=== PATIENT | male | born 1955 | race Caucasian/White ===

== ENCOUNTER 2019-11-03 15:05 | Inpatient (IN) | payer OTHER ==
--- OUTSIDE RECORDS SUMMARY | 2019-11-03 15:07 | XMS REPORT ---
:1955 [facility] Address [address] [place] [address] Dr. Toscano [address] [place] [id number] Care Team Providers Name Role Phone PORTEROLEG Troncoso KELLEE Unavailable Unavailable DEVI IBARRA Unavailable Unavailable Problems This patient has no known problems. Allergies, Adverse Reactions, Alerts This patient has no known allergies or adverse reactions. Medications This patient has no known medications. 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 COMPARISON: None available FINDINGS: Evaluation of the left femoral neck and lumbar spine were performed utilizing a bone densitometer. The left femoral neck bone mineral density is 0.777gm/cm2, the T-score is -1.1, and the Z-score is -0.1. The lumbar spine total bone mineral density is 0.906gm/cm2, the T-score is -1.7, and the Z-score is -0.9. IMPRESSION: WHO classification of osteopenia for the left femoral neck. WHO classification of osteopenia for the lumbar spine. Diagnostic criteria (World Health Organization)-Normal: BMD measurement less than one standard deviation from young adult populationOsteopenia: BMD measurement between 1 and 2.4 standard deviations belowOsteoporosis: BMD measurement greater than or equal to 2.5 standard deviations belowSevere osteoporosis: Osteoporosis and one or more fragility fractures Signed: Royce Dasilva Verified Date/Time: 12/05/2018 14:58:39 Reading Location: [facility] UE EXAM 2018-09-07 Surgical Pathology Report 12:15:00 Case: [id number] Authorizing Provider: Oleg Rowe MD Collected: 09/05/2018 1334 Ordering Location: [facility] ENDOSCOPY Received: 09/06/2018 0807 SERVICES Pathologist: Neris Noonan MD Specimens: A) - Cecum, Cecal biopsies, History of Ulcerative Colitis, evaluate for dysplasia B) - Large Intestine, Colon - Right/Ascending, Ascending colon biopsies C) - Large Intestine, Colon - Transverse, Transverse colon biopsies D) - Polyp, Colon - Transverse, Transverse colon polyp x2 E) - Large Intestine, Colon - Left/Descending, Descending colon biopsies F) - Large Intestine, Colon - Sigmoid, Sigmoid colon biospies G) - Rectum, Rectal biopsies A. LARGE BOWEL, CECUM, BIOPSIES: - UNREMARKABLE CECAL MUCOSAB. COLON, ASCENDING, BIOPSIES: - CHRONIC INACTIVE COLITIS C. COLON, TRANSVERSE, POLYPECTOMY: - TUBULAR ADENOMA D. COLON, TRANSVERSE, POLYPECTOMY: - CHRONIC INACTIVE COLITIS E. COLON, LEFT, BIOPSIES: - CHRONIC INACTIVE COLITISF. LARGE BOWEL, SIGMOID, BIOPSIES: - CHRONIC INACTIVE COLITISG. RECTUM, BIOPSIES: - CHRONIC INACTIVE PROCTITIS Signing Pathologist Direct Phone Line: [phone] signed by Neris Noonan MD on 09/07/2018 at 12:15 [facility]/ew [id number] pancolitis without complication, history ulcerative colitis, evaluate for dysplasia A. Cecal biopsy. B. Ascending colon biopsy. C. Transverse colon biopsy. D. Transverse colon polyp x2. E. Left descending colon biopsy. F. Sigmoid colon biopsy. G. Rectal biopsy Specimen is received in seven containers of formalin all labeled with the patient's information.Specimen A: Labeled "cecal biopsy" consists of multiple small fragments of kenney tissue ranging from less than 0.1 to 0.2 cm, submitted entirely in A1.Specimen B: Labeled "right ascending colon biopsy" consists of two fragments of kenney tissue measuring 0.3 and 0.4 cm submitted in B1.Specimen C: Labeled "transverse colon biopsy" consists of two fragments of kenney tissue measuring 0.4 and 0.6 cm, submitted in C1.Specimen D: Labeled "transverse colon polyp x2" consists of two fragments of kenney tissue measuring 0.1 cm, submitted entirely in D1.Specimen E: Labeled "left descending colon biopsy" consists of multiple small fragments of kenney tissue ranging from less than 0.1 to 0.2 cm, submitted entirely in E1.Specimen F: Labeled "sigmoid colon biopsy" consists of three fragments of kenney tissue ranging from 0.1 to 0.3 cm, submitted entirely in F1.Specimen G: Labeled "rectal biopsy" consists of multiple fragments of kenney-white soft tissue ranging from less than 0.1 to 0.4 cm, submitted entirely in G1. CG/ew C. The transverse colon polyps are tubular adenomas. No high-grade dysplasia or carcinoma is identified.A-B and D-G. No CMV, dysplasia or malignancy is identified. URINE CULTURE 2016-10-21 12:36:00 Test Item Value Reference Range Comments CULTURE (BEAKER) (test ysdr=3344) No growth URINALYSIS W/ [id number] 15:29:00 Test Item Value Reference Range Comments COLOR (BEAKER) (test xdvs=267) Dark Yellow CLARITY (BEAKER) (test asve=703) Clear SPECIFIC GRAVITY UA (BEAKER) (test pbjj=255) 1.023 1.001-1.035 PH UA (BEAKER) (test enhp=350) 5.5 5.0-8.0 PROTEIN UA (BEAKER) (test pdcv=864) Negative Negative GLUCOSE UA (BEAKER) (test slph=793) Negative Negative KETONES UA (BEAKER) (test afug=561) Negative Negative BILIRUBIN UA (BEAKER) (test iigg=130) Negative Negative BLOOD UA (BEAKER) (test xflx=165) Negative Negative NITRITE UA (BEAKER) (test wsdg=765) Negative Negative LEUKOCYTE ESTERASE UA (BEAKER) (test xtde=426) Negative Negative UROBILINOGEN UA (BEAKER) (test yyzn=924) 0.2 mg/dL 0.2-1.0 RBC UA (BEAKER) (test mylq=327) < /HPF WBC UA (BEAKER) (test jshh=108) < /HPF MUCUS (BEAKER) (test rpyg=5212) Rare SOURCE(BEAKER) (test byid=9520)
--- OUTSIDE RECORDS SUMMARY | 2019-11-03 15:07 | XMS REPORT | Summary of Care ---
:1955 Author Organization [facility] [place] [address] Care Team Providers Name Role Phone Quintin Singh MD Primary Care Provider Zane Mena Crc Navigator Reason for Visit Reason Comments Nutrition Counseling Consult, Test & Treat (Routine) Status Reason Specialty Diagnoses / Referred By Referred To Procedures Contact Contact Authorization Not Consult, Gastroenterology Diagnoses Ulcerative pancolitis without complication (HCCode) Zee Sage, Needed Test, and Procedures MT MED NUTR THER, 1ST, INDIV, EA 15 MIN MD Jovan Alessia, RD Treat [address] [facility] [address] [place] [address] Encounter Details Date Type Department Care Team Description 10/22/2019 Office Visit [facility] Alessia Koch, Nutrition Counseling Medicine RD Gastroenterology [address] [facility] [address] [facility] [address] 8th Floor, [address] [phone] Allergies No Known Allergiesdocumented as of this encounter (statuses as of 10/22/2019) Medications Medication Sig Dispensed Refills Start Date End Date Status Multiple Take by mouth. 0 Active Vitamins-Minerals (MULTIVITAMIN PO)Indications: Elevated prostate specific antigen (PSA) ASPIRINIndications: 81 mg. 0 Active Elevated prostate specific antigen (PSA) fluticasone (FLONASE) 0 05/03/2015 Active 50 MCG/ACT nasal spray amlodipine (NORVASC) 0 05/03/2015 Active 2.5 MG tablet Probiotic Product Take by mouth. 0 Active (PROBIOTIC OR) glucosamine-chondroitin Take 3 tablets by 0 Active 500-400 MG tablet mouth. acetaminophen 325 mg Take 650 mg by 0 Active tablet mouth. aspirin EC 81 MG TBEC Take 81 mg by 0 Active mouth. fexofenadine (TAZ) Take 30 mg by 0 Active 30 MG tablet mouth. azathioprine (IMURAN) Take 1.5 Tabs by 405 Tab 1 03/14/2018 Active 50 MG mouth daily. - 90 tabletIndications: day supply Ulcerative pancolitis without complication (HCCode) tadalafil (CIALIS) 5 MG Take 1 Tab by 90 Tab 3 02/06/2019 Active tabletIndications: mouth daily. Erectile dysfunction following radical prostatectomy sildenafil citrate Take 1 Tab by 20 Tab 6 02/06/2019 Active (VIAGRA) 100 MG mouth as needed tabletIndications: for Erectile Erectile dysfunction Dysfunction. following radical prostatectomy dicyclomine (BENTYL) 20 TAKE 1 TABLET BY 360 Tab 1 06/15/2019 Active MG tablet MOUTH EVERY 6 HOURS Na Sulfate-K Sulfate-Mg [SUPREP] Take as 1 Bottle 0 08/14/2019 Active Sulf (SUPREP BOWEL PREP directed. KIT) 17.5-3.13-1.6 GM/177ML SOLNIndications: Ulcerative pancolitis without complication (HCCode) documented as of this encounter (statuses as of 10/22/2019) Active Problems Problem Noted Date History of steroid therapy 06/12/2018 Erectile dysfunction following radical prostatectomy 01/31/2018 Iron deficiency anemia 04/01/2017 Ulcerative colitis (HCCode) 03/21/2017 History of immunosuppression therapy 03/21/2017 Medication monitoring encounter 03/21/2017 Examination of participant or control in clinical research 03/21/2017 Intestinal malabsorption 03/21/2017 Urethral stricture 10/07/2016 Dysuria 09/28/2016 Skin yeast infection 09/09/2016 JADYN (stress urinary incontinence), male 09/09/2016 Family history of prostate cancer 10/07/2015 Prostate cancer (HCCode) 02/14/2014 HTN (hypertension) documented as of this encounter (statuses as of 10/22/2019) Resolved Problems Problem Noted Date Resolved Date Elevated prostate specific antigen (PSA) 02/14/2014 09/09/2016 documented as of this encounter (statuses as of 10/22/2019) Social History Tobacco Use Types Packs/Day Years Used Date Never Smoker Smokeless Tobacco: Never Used Alcohol Use Drinks/Week oz/Week Comments Yes 2-3 Standard drinks or equivalent 2.0 - 3.0 Sex Assigned at Date Recorded Male 02/05/2019 6:25 PM CDT Job Start Date Occupation Industry Not on file Not on file Not on file Travel History Travel Start Travel End No recent travel history available. documented as of this encounter Last Filed Vital Signs Not on filedocumented in this encounter Progress Notes Alessia Koch, RD - 10/22/2019 9:00 AM CST Nutrition Assessment Indication Initial Nutrition Admit Data: This is a 64 year old Male Clinical Data: Diagnosis Ulcerative pancolitis Current Weight and Height: Height is 72 Weight is -> 164 lbs. Weight is Current BMI 22.2 (normal) Weight Change: Weight change in the past 6 months: N/A Estimated Nutrient Needs: Energy(Kilocalories) ~2610-8076 calories/day Assessment: Pt reports sole GI discomfort is abdominal cramp & bloating at times. He reports decreased episodes of loose stools. He denies any current weight changes. He consumes 3 regular meals a day/1-2 snacks. A review of current intake indicated high gluten & some high FODMAP fruits. He rarely consumes veggies and has slightly lower intake of protein. Pertinent Lab Values: N/A Nutrition Related Medications and Supplements: Nutrition related meds and supplements are Vit D, Calcium, turmeric, fish oil, MVI Nutrition Intervention: Instructed Patient re: UC / anti-inflammatory nutrition; meal planning; micro/ macronutrient needs. I discussed micro/macronutrient needs and benefits of meeting needs. I gave thorough revision of mealplanning strategies, anti- inflammatory and protein-rich food sources. I discussed gluten-free and low FODMAP meal and snack alternatives. I also reviewed portion modifications while yet meeting caloricneeds. Plan: ? Meet micro & macronutrient needs ? Use meal planning guides provided ? Adequate protein intake ? Consider temporary gluten-free diet ? Monitor FODMAP intake ? Maintain food and symptom log ? Continue supplementation ? Follow-up as neededElectronically signed by Alessia Koch RD at 2019 3:23 PM CSTdocumented in this encounter Plan of Treatment Date Type Specialty Care Team Description 12/11/2019 Office Visit Gastroenterology Oleg Rowe MD [address] [facility] [address] [place] [address] [phone] 08/12/2020 Office Visit Urology Sal Arrieta MD [address] [facility] [address] [place] [address] [place] [address] [phone] Name Type Priority Associated Diagnoses Order Schedule MT MED NUTR THER, MT Charge Routine Ulcerative pancolitis Ordered: 2019 1ST, DAVID EA 15 (HCCode) MIN Health Maintenance Due Date Last Done Comments TETANUS SHOT (ADULT) 1968 HEPATITIS C SCREENING 1971 MEDICARE AWV (Initial) 02/26/2018 FALL SCREEN 2018 PNEUMOVAX >=65 (PPSV23) 2018 PREVNAR >=65 (PCV13) 2018 FLU VACCINE > 6 MONTHS 03/29/2019 08/02/2017 (Declined) COLON CANCER SCREENING: COLONOSCOPY 09/05/2028 09/05/2018, 02/24/2016, 02/26/2015 documented as of this encounter Results Not on filedocumented in this encounter Visit Diagnoses Diagnosis Ulcerative pancolitis (HCCode) - Primary Hitchcock ulcerative (chronic) colitis documented in this encounter Insurance Payer Benefit Plan / Subscriber ID Effective Dates Phone Address Type Group [employer] MEDICARE PLAN PPO xxxxxxxx 2018-Present [address] Medicare - [employer] [place] [address] (Work) documented as of this encounter
[2019-11-03] MEDS ORDERED: NA CHLORIDE 0.9% 1,000 ML ONE (15:39)
[2019-11-03] MEDS ORDERED: FENTANYL CITR 100 MCG/2 ML ONE ×2 (15:39→19:51)
[2019-11-03 16:12] LABS: Urine Bacteria <20 /HPF (NONE SEEN); Urine Culture Reflex Order NOT NEEDED
[2019-11-03 16:22] LABS: Absolute Lymphocytes (CBC) 0.3 K/uL (0.7-4.9); Basophils % 0.2 % (0-1.3); Hematocrit 42.5 % (39.6-49.0); Lymphocytes % 2.1 % (15.3-44.8); MPV 10.2 fL (7.6-11.3); RBC Red Blood Cell Count 4.25 M/uL (4.33-5.43)
[2019-11-03 16:31] LABS: Albumin 3.6 g/dL (3.4-5.0); Bilirubin Direct 0.3 mg/dL (0-0.2); Bilirubin Total 1.4 mg/dL (0.2-1.0); Potassium 4.5 mmol/L (3.5-5.1); Protein, Total 7.5 g/dL (6.4-8.2)
[2019-11-03] MEDS ORDERED: PIPER/TAZO/NS 3.375gm 3.375 GM/100 ML BAG ONE (16:55)
[2019-11-03 17:04] LABS: Blood Morphology Comment NOT SEEN (NOT SEEN); Platelet Estimate ADEQ; Urine White Blood Cell Casts OK
--- NOTE | 2019-11-03 17:34 | RAD REPORT ---
EXAM DESCRIPTION: CT - Abdomen Pelvis W Contrast - 11/03/2019 5:00 pm CLINICAL HISTORY: Abdominal pain COMPARISON: 2016 TECHNIQUE: Computed axial tomography of the abdomen pelvis was obtained. 100 cc Isovue-300 was admin istered intravenously. Oral contrast was not requested which limits evaluation of bowel. All CT scans are performed using dose optimization technique as appropriate and may include automated exposure control or mA/KV adjustment according to patient size. FINDINGS: The liver, pancreas, adrenals appear unremarkable. Small renal cysts. Small splenic cyst Diverticula stem from the colon without evidence of diverticulitis The appendix is enlarged with stranding in adjacent fat and small amount of ill-defined fluid Prostatectomy with lymph node dissection IMPRESSION: Suppurative appendicitis
--- NOTE | 2019-11-03 18:34 | EDPHYS ---
Physician Documentation [facility] Name: Lucas Alexandra Age: 64 yrs Sex: Male : 1955 Arrival Date: 11/03/2019 Time: 15:08 Bed 18 Private MD: Jeet Singh C ED Physician Tio Jo HPI: 11/02 16:08 This 64 yrs old Male presents to ER via Ambulatory with complaints of snw Abdominal Pain. 16:08 The patient presents with abdominal distention in the right lower quadrant. Onset: The snw symptoms/episode began/occurred gradually, 3 day(s) ago, and became persistent. The symptoms do not radiate. Associated signs and symptoms: Pertinent positives: nausea, low grade temp. The symptoms are described as steady. Severity of pain: At its worst the pain was moderate. The patient has not experienced similar symptoms in the past. It is unknown whether or not the patient has recently seen a physician. hx of UC, well controlled, sees Dr. Singh. Historical: - Allergies: 15:22 No Known Allergies; tw2 - Home Meds: 15:22 amlodipine 2.5 mg tab 1 tab once daily [Active]; aspirin 81 mg Oral chew 1 tab once tw2 daily [Active]; Vitamin C 1,000 mg oral tab [Active]; Glucosamine-MSM Complex 500-333-5 mg oral cap [Active]; Vitamin D3 1,000 unit oral tab [Active]; acetaminophen 325 mg Oral tab 1 tab every 4 hours [Active]; Multiple Vitamins oral tab [Active]; vitmain zinc [Active]; turmeric (bulk) 100 % miscellaneous powd [Active]; Marla 180 mg Oral tab 1 tab once daily [Active]; Citracal Oral [Active]; Fish Oil oral oral [Active]; azathioprine 50 mg Oral tab 1.5 tab once daily [Active]; Cialis oral oral [Active]; dicyclomine 20 mg Oral tab 1 tab twice a day [Active]; Benadryl 25 mg Oral cap 1 cap nightly [Active]; melatonin 10 mg Oral tab [Active]; - PMHx: 15:22 Hypertension; ulcerative colitis; tw2 - PSHx: 15:22 prostate sx; Hernia repair; retinal sx; tw2 - Immunization history:: Adult Immunizations. - Social history:: Smoking status: . ROS: 16:06 Constitutional: Negative for fever, chills, and weight loss, Eyes: Negative for injury, snw pain, redness, and discharge, ENT: Negative for injury, pain, and discharge, Neck: Negative for injury, pain, and swelling, Cardiovascular: Negative for chest pain, palpitations, and edema, Respiratory: Negative for shortness of breath, cough, wheezing, and pleuritic chest pain, Back: Negative for injury and pain, : Negative for injury, bleeding, discharge, and swelling, MS/Extremity: Negative for injury and deformity, Skin: Negative for injury, rash, and discoloration, Neuro: Negative for headache, weakness, numbness, tingling, and seizure, Psych: Negative for depression, anxiety, suicide ideation, homicidal ideation, and hallucinations. 16:06 Abdomen/GI: Positive for abdominal pain, nausea. Exam: 16:06 Constitutional: This is a well developed, well nourished patient who is awake, alert, snw and in no acute distress. Head/Face: Normocephalic, atraumatic. Eyes: Pupils equal round and reactive to light, extra-ocular motions intact. Lids and lashes normal. Conjunctiva and sclera are non-icteric and not injected. Cornea within normal limits. Periorbital areas with no swelling, redness, or edema. ENT: Nares patent. No nasal discharge, no septal abnormalities noted. Tympanic membranes are normal and external auditory canals are clear. Oropharynx with no redness, swelling, or masses, exudates, or evidence of obstruction, uvula midline. Mucous membranes moist. Neck: Trachea midline, no thyromegaly or masses palpated, and no cervical lymphadenopathy. Supple, full range of motion without nuchal rigidity, or vertebral point tenderness. No Meningismus. Chest/axilla: Normal chest wall appearance and motion. Nontender with no deformity. No lesions are appreciated. Cardiovascular: Regular rate and rhythm with a normal S1 and S2. No gallops, murmurs, or rubs. Normal PMI, no JVD. No pulse deficits. Respiratory: Lungs have equal breath sounds bilaterally, clear to auscultation and percussion. No rales, rhonchi or wheezes noted. No increased work of breathing, no retractions or nasal flaring. Back: No spinal tenderness. No costovertebral tenderness. Full range of motion. Skin: Warm, dry with normal turgor. Normal color with no rashes, no lesions, and no evidence of cellulitis. MS/ Extremity: Pulses equal, no cyanosis. Neurovascular intact. Full, normal range of motion. Neuro: Awake and alert, GCS 15, oriented to person, place, time, and situation. Cranial nerves II-XII grossly intact. Motor strength 5/5 in all extremities. Sensory grossly intact. Cerebellar exam normal. Normal gait. Psych: Awake, alert, with orientation to person, place and time. Behavior, mood, and affect are within normal limits. 16:06 Abdomen/GI: Bowel sounds: active, all quadrants, Palpation: moderate abdominal tenderness, in the right lower quadrant, Indicators: McBurney's point is tender. Vital Signs: 15:15 BP 137 / 78; Pulse 99; Resp 17; Temp 100.4(O); Pulse Ox 99% on R/A; Weight 72.57 kg tw2 (R); Height 6 ft. 0 in. (182.88 cm); Pain 7/10; 17:56 BP 129 / 72; Pulse 97; Resp 17; Temp 100.9; Pulse Ox 96% on R/A; mh5 15:15 Body Mass Index 21.70 (72.57 kg, 182.88 cm) tw2 MDM: 15:35 Patient medically screened. snw 18:27 Data reviewed: vital signs, nurses notes. Data interpreted: Pulse oximetry: on room air snw is 96 %. Interpretation: acceptable. Counseling: I had a detailed discussion with the patient and/or guardian regarding: the historical points, exam findings, and any diagnostic results supporting the discharge/admit diagnosis, lab results, radiology results, the need for further work-up and treatment in the hospital. Response to treatment: the patient's symptoms have mildly improved after treatment. Physician consultation: Kareem Peterson MD was called at 18:28, was contacted at 18:28, regarding admission, to the medical/surgical unit. 18:32 Physician consultation: George Welch MD was called at 18:32, was contacted at 18:32, snw regarding consult. 18:39 ED course: Consulted with Dr. Welch, will take to OR today. Called out OR crew. . rn 03/07 15:27 Order name: Basic Metabolic Panel; Complete Time: 16:33 snw 11/02 15:27 Order name: CBC with Diff; Complete Time: 17:09 snw 11/02 15:27 Order name: Creatinine for Radiology; Complete Time: 16:29 snw 11/02 15:27 Order name: Hepatic Function; Complete Time: 16:33 snw 11/02 15:27 Order name: Lipase; Complete Time: 16:33 snw 11/02 15:27 Order name: Urine Culture snw 11/02 15:27 Order name: IV Saline Lock; Complete Time: 16:19 snw 11/02 15:27 Order name: CT Abd/Pelvis - IV Contrast Only; Complete Time: 17:46 snw 11/02 15:27 Order name: Urine Microscopic Only; Complete Time: 16:24 snw 11/02 16:03 Order name: Urine Dipstick--Ancillary (enter results) eb 11/02 16:32 Order name: CBC Smear Scan; Complete Time: 17:09 EDMS 11/02 15:27 Order name: Labs collected and sent; Complete Time: 16:19 snw 11/02 15:27 Order name: Urine Dipstick-Ancillary (obtain specimen); Complete Time: 16:17 snw 11/02 18:35 Order name: NPO; Complete Time: 18:39 snw Administered Medications: 15:50 Drug: NS 0.9% 1000 ml Route: IV; Rate: 125 ml/hr; Site: right antecubital; vc 19:29 Follow up: IV Status: Infusion continued upon admission; IV Intake: 700ml vc 15:50 Drug: fentaNYL (PF) 25 mcg Route: IVP; Site: right antecubital; vc 17:00 Follow up: Response: No adverse reaction vc 17:46 Drug: Zosyn 3.375 grams Route: IVPB; Infused Over: 60 mins; Site: right antecubital; vc 19:00 Follow up: IV Status: Completed infusion; IV Intake: 100ml vc Disposition: 11/03 10:08 Co-signature as Attending Physician, Tio Jo MD. rn Disposition: 11/03/19 18:34 Hospitalization ordered by Jeet Singh for Inpatient Admission. Preliminary diagnosis is Acute appendicitis. - Bed requested for Operating Room. - Status is Inpatient Admission. vc - Condition is Stable. - Problem is new. - Symptoms are unchanged. Signatures: Dispatcher [employer] EDMS Jeanna Gill, TWENTY ONE DEALER-C TWENTY ONE DEALER-Csnw Tio Jo MD MD rn Wise, Tara, RN RN tw2 Eunice Leone Vanessa, RN RN vc Corrections: (The following items were deleted from the chart) 11/02 18:38 18:34 Hospitalization Ordered by A Francisco AYOUB for Inpatient Admission. Preliminary eb diagnosis is Acute appendicitis. Bed requested for Telemetry/MedSurg (Inpatient). Status is Inpatient Admission. Condition is Stable. Problem is new. Symptoms are unchanged. snw 19:27 18:38 11/03/2019 18:34 Hospitalization Ordered by A Francisco AYOUB for Inpatient Admission. vc Preliminary diagnosis is Acute appendicitis. Bed requested for Telemetry/MedSurg (Inpatient). Status is Inpatient Admission. Condition is Stable. Problem is new. Symptoms are unchanged. eb
--- NOTE | 2019-11-03 18:34 | ER ---
Nurse's Notes [facility] Name: Lucas Alexandra Age: 64 yrs Sex: Male : 1955 Arrival Date: 11/03/2019 Time: 15:08 Bed 18 Private MD: Jeet Singh C Diagnosis: Acute appendicitis Presentation: 11/02 15:15 Chief complaint: Patient states: i think really i started feeling bad in the middle of tw2 the night , just a little bit of discomfort on the right side of my stomach, but last night it really started hurting and is tender on the right side, i was up and down all night, an i have the chills off and on, little nauseousness. Coronavirus screen: The patient has NOT traveled to a country currently being monitored by the CDC within the last 14 days. Ebola Screen: Patient denies travel to an Ebola-affected area in the 21 days before illness onset. Initial Sepsis Screen: Does the patient meet any 2 criteria? HR > 90 bpm. No. Patient's initial sepsis screen is negative. Does the patient have a suspected source of infection? No. Patient's initial sepsis screen is negative. Risk Assessment: Do you want to hurt yourself or someone else? Patient reports no desire to harm self or others. 15:15 Method Of Arrival: Ambulatory tw2 15:15 Acuity: ROLY 3 tw2 15:[address] Singh is pcp and took Tylenol at 2pm today. tw2 Triage Assessment: 15:17 General: Appears in no apparent distress. slender, well groomed, Behavior is calm, tw2 cooperative, appropriate for age. Pain: Complains of pain in right upper quadrant and right lower quadrant. GI: Reports lower abdominal pain, upper abdominal pain, nausea. Historical: - Allergies: 15:22 No Known Allergies; tw2 - Home Meds: 15:22 amlodipine 2.5 mg tab 1 tab once daily [Active]; aspirin 81 mg Oral chew 1 tab once tw2 daily [Active]; Vitamin C 1,000 mg oral tab [Active]; Glucosamine-MSM Complex 500-333-5 mg oral cap [Active]; Vitamin D3 1,000 unit oral tab [Active]; acetaminophen 325 mg Oral tab 1 tab every 4 hours [Active]; Multiple Vitamins oral tab [Active]; vitmain zinc [Active]; turmeric (bulk) 100 % miscellaneous powd [Active]; Marla 180 mg Oral tab 1 tab once daily [Active]; Citracal Oral [Active]; Fish Oil oral oral [Active]; azathioprine 50 mg Oral tab 1.5 tab once daily [Active]; Cialis oral oral [Active]; dicyclomine 20 mg Oral tab 1 tab twice a day [Active]; Benadryl 25 mg Oral cap 1 cap nightly [Active]; melatonin 10 mg Oral tab [Active]; - PMHx: 15:22 Hypertension; ulcerative colitis; tw2 - PSHx: 15:22 prostate sx; Hernia repair; retinal sx; tw2 - Immunization history:: Adult Immunizations. - Social history:: Smoking status: . Screenin:40 Abuse screen: Denies threats or abuse. Nutritional screening: No deficits noted. vc Tuberculosis screening: No symptoms or risk factors identified. Fall Risk None identified. Assessment: 15:00 GI: Bowel sounds present X 4 quads. Abd is soft Abdomen is tender to palpation. vc 15:00 General: Appears in no apparent distress. uncomfortable, Behavior is calm, cooperative, vc appropriate for age. Pain: Complains of pain in right lower quadrant and right upper quadrant. Neuro: Level of Consciousness is awake, alert, obeys commands, Oriented to person, place, time, situation, Appropriate for age. Cardiovascular: Capillary refill < 3 seconds Patient's skin is warm and dry. Respiratory: Airway is patent Respiratory effort is even, unlabored, Respiratory pattern is regular, symmetrical. : No signs and/or symptoms were reported regarding the genitourinary system. EENT: No signs and/or symptoms were reported regarding the EENT system. Derm: Skin temperature is warm. 16:00 Reassessment: Patient and/or family updated on plan of care and expected duration. Pain vc level reassessed. Patient is alert, oriented x 3, equal unlabored respirations, skin warm/dry/pink. 17:00 Reassessment: Patient and/or family updated on plan of care and expected duration. Pain vc level reassessed. Patient is alert, oriented x 3, equal unlabored respirations, skin warm/dry/pink. Patient states symptoms have not improved. 18:00 Reassessment: Patient and/or family updated on plan of care and expected duration. Pain vc level reassessed. Patient is alert, oriented x 3, equal unlabored respirations, skin warm/dry/pink. Patient states feeling better. 18:51 Reassessment: Patient placed in gown. vc 19:00 Reassessment: Patient and/or family updated on plan of care and expected duration. Pain vc level reassessed. Patient is alert, oriented x 3, equal unlabored respirations, skin warm/dry/pink. Patient states feeling better. 19:26 Reassessment: Patient wheeled to surgery by OR nurseAlbertina. vc Vital Signs: 15:15 BP 137 / 78; Pulse 99; Resp 17; Temp 100.4(O); Pulse Ox 99% on R/A; Weight 72.57 kg tw2 (R); Height 6 ft. 0 in. (182.88 cm); Pain 7/10; 17:56 BP 129 / 72; Pulse 97; Resp 17; Temp 100.9; Pulse Ox 96% on R/A; mh5 15:15 Body Mass Index 21.70 (72.57 kg, 182.88 cm) tw2 ED Course: 15:08 Patient arrived in ED. ag5 15:08 Jeet Singh MD is Private Physician. ag5 15:16 Jeanna Gill FNP-C is [facility]. snw 15:16 Tio Jo MD is Attending Physician. snw 15:16 Triage completed. tw2 15:16 Arm band placed on. tw2 15:31 Brenda Espitia, RN is Primary Nurse. vc 15:35 Inserted saline lock: 20 gauge in right antecubital area, using aseptic technique. vc 15:41 Radiology exam delayed due to lab results not completed at this time. (BUN/Creatinine). mw3 16:59 CT completed. Patient moved back from CT. mw3 17:00 CT Abd/Pelvis - IV Contrast Only In Process Unspecified. EDMS 17:57 Patient has correct armband on for positive identification. Bed in low position. Call 5 light in reach. Side rails up X 1. Adult w/ patient. Pulse ox on. NIBP on. 18:33 Jeet Singh MD is Hospitalizing Provider. snw 19:25 No provider procedures requiring assistance completed. Patient admitted, IV remains in vc place. Administered Medications: 15:50 Drug: NS 0.9% 1000 ml Route: IV; Rate: 125 ml/hr; Site: right antecubital; vc 19:29 Follow up: IV Status: Infusion continued upon admission; IV Intake: 700ml vc 15:50 Drug: fentaNYL (PF) 25 mcg Route: IVP; Site: right antecubital; vc 17:00 Follow up: Response: No adverse reaction vc 17:46 Drug: Zosyn 3.375 grams Route: IVPB; Infused Over: 60 mins; Site: right antecubital; vc 19:00 Follow up: IV Status: Completed infusion; IV Intake: 100ml vc Intake: 19:00 IV: 100ml; Total: 100ml. vc 19:29 IV: 700ml; Total: 800ml. vc Outcome: 18:34 Decision to Hospitalize by Provider. snw 19:25 Admitted to OR accompanied by nurse, via wheelchair. vc 19:25 Condition: good 19:25 Instructed on the need for admit. 19:27 Patient left the ED. vc Signatures: Dispatcher [employer] EDMS Jeanna Gill, FIELD SUPPORT REPRESENTATIVE-C FIELD SUPPORT REPRESENTATIVE-Csnw Chanel Esteves, RN RN tw2 Johana Smith 5 Donna Cardoza 3 Chuy Heredia 5 Brenda Espitia RN RN vc Corrections: (The following items were deleted from the chart) 19:26 19:23 Reassessment: Patient wheeled to surgery by OR nurse, Albertina. vc vc
[2019-11-03] MEDS ORDERED: BUPIVACAINE 0.5% PF 10 ML VIAL ONE (19:16)
[2019-11-03 19:43] LABS: Urine Blood TRACE (NEG); Urine Glucose NEGATIVE (NEG); Urine Protein 1+ (NEG); Urine pH 6.5 (5.0-7.0)
[2019-11-03] MEDS ORDERED: SUCCINYLCHOLINE 20 MG/ML (10 ML) IV ONE (19:48)
[2019-11-03] MEDS ORDERED: propofoL 200 MG/20 ML VIAL IV ONE (19:51)
[2019-11-03] MEDS ORDERED: MIDAZOLAM HCL 2 MG/2 ML INJ ONE (19:51)
[2019-11-03] MEDS ORDERED: ROCURONIUM 50 MG/5 ML VIAL IV ONE (19:51)
[2019-11-03] MEDS: Ringers Lactate 1,000 ML IV ONE ×2 (19:51→20:15)
[2019-11-03] MEDS ORDERED: MORPHINE 4 MG/ML SYR IV PRN (20:25)
[2019-11-03] MEDS: D5 0.45 NS 1,000 ML IV SCH ×2 (20:25→21:46)
[2019-11-03] MEDS ORDERED: NEOSTIGMINE 1 MG/ML -5 ML ONE ×2 (20:33→20:35)
[2019-11-03] MEDS ORDERED: GLYCOPYRROLATE 0.2 MG/ML SYR ONE (20:34)
--- NOTE | 2019-11-03 20:38 | P.OP ---
Preoperative diagnosis: Acute Appendicitis Postoperative diagnosis: same Primary procedure: Lap Appy Anesthesia: General Estimated blood loss: min Specimen: Appy Findings: as above Complications: None Transferred to: Recovery Room Condition: Good
[2019-11-03] MEDS ORDERED: ONDANSETRON 4 MG/2 ML VIAL IV PRN (20:53)
--- NOTE | 2019-11-03 21:48 | OP ---
Date of Procedure: 11/03/2019 Surgeon: George Welch MD Preoperative Diagnosis: Acute appendicitis. Postoperative Diagnosis: Acute suppurative appendicitis. Procedure Performed: Laparoscopic appendectomy. Estimated Blood Loss: Minimal. Specimen: Appendix. Findings: As above. Anesthesia: General. Complications: None. Patient tolerated the procedure in stable condition, taken to Recovery in good general condition. Description Of Procedure: The patient was brought to the OR and placed in supine position. General anesthesia was begun. The patient was prepped and draped in usual sterile fashion. Marcaine 0.5% wa s infiltrated locally. A 15-blade was used to make a 1 cm supraumbilical midline incision. Subcutan eous tissue divided. The fascia was identified and divided. A #1 Vicryl stay suture was placed. Pe ritoneal cavity was entered with sharp and blunt dissection. 12 mm trocar was placed into the perito amparo cavity under direct vision. Pneumoperitoneum was established. 5 mm trocar was placed in the le ft lower quadrant suprapubic region. Laparoscopy revealed acute suppurative appendicitis. The appen david being in the pelvis next to the sigmoid colon, which was and there was questionable per foration near the proximal part of the appendix. Base of the appendix on the cecum clearly identifie d. The mesoappendix clearly identified and a lot of separation around the appendix. Endo-VERENICE staple r was used to divide both structures and the appendix retrieved through the umbilicus via an EndoCatc h bag. Right lower quadrant, pelvis thoroughly irrigated. Effluent was clear. No evidence of bleed ing or bowel injury appreciated. Subsequently, all trocars removed in direct vision. Stay sutures w ere tied to each other reapproximate the fascial defect. Subcu wounds irrigated. Bleeding controlle d with cautery. A 3-0 chromic used for subcutaneous tissue and kathe used to close the skin. Ster ile dressing applied. Patient was awakened and taken to Recovery in good general condition. /MODL Voice ID: [id number] Report ID: [id number]
--- NOTE | 2019-11-03 21:52 | PREOPCON ---
Date of Consultation: 11/03/2019 Reason For Consultation: Abdominal pain. History Of Present Illness: Patient is a 64-year-old gentleman who 2 days ago had some lower abdomin al pain, did not feel well, some nausea, but no vomiting. No diarrhea or constipation. No dysuria o r hematuria. Yesterday, discomfort became worse and he did not sleep well. He ate well yesterday bu t today he has no appetite. Pain gotten worse. It was periumbilical now in the right lower quadrant . No sore throat, runny nose, cough, headaches, or dizziness. No chest pain. No fever or chills. Review of Systems: Otherwise unremarkable. Past Medical History: Hypertension, Crohn disease. Past Surgical History: Right inguinal hernia repair and prostatectomy. Allergies: NONE. Social History: Patient denies smoking or drinking. Family History: Noncontributory. Physical Examination: Vital Signs: Stable. He is currently afebrile. General: He is awake, alert, and oriented x3. Head and neck/MARINE EXTENSION AGENT: Cranial nerves 2 through 12 are grossly within normal. No neck masses. No JVD. Throat clear. Neck supple. Chest: Clear. Heart: S1, S2. Abdomen: Soft, nondistended. Positive bowel sounds. Positive right lower quadrant tenderness with rebound. No rigidity or guarding. Extremities: Adequately perfused. Nontender. Neuro: Nonfocal. Laboratory Data: White count is 15,000. CT of the abdomen and pelvis is consistent with acute suppu rative appendicitis. Assessment: Acute appendicitis. Plan: Admit, n.p.o., IV fluid, IV antibiotic, to the OR for Lap-Appy, possible open. The patient un derstands the risks, benefits, and alternatives and agrees to procedure. /MODL Voice ID: [id number] Report ID: [id number]
[2019-11-03] MEDS: HYDROMORPHONE HCL 1 MG/ML INJ IV PRN (22:13)
[2019-11-03 23:44] VITALS: BMI 21.7
[2019-11-04] MEDS: HYDROMORPHONE HCL 1 MG/ML INJ IV PRN ×3 (03:26→10:24)
[2019-11-04] MEDS: D5 0.45 NS 1,000 ML IV SCH ×3 (05:07→20:22)
[2019-11-04 06:13] LABS: Absolute Lymphocytes (CBC) 0.4 K/uL (0.7-4.9); Basophils % 0.2 % (0-1.3); Hematocrit 37.3 % (39.6-49.0); MPV 9.6 fL (7.6-11.3); RBC Red Blood Cell Count 3.74 M/uL (4.33-5.43)
[2019-11-04 06:29] LABS: Magnesium 1.6 mg/dL (1.8-2.4); Potassium 4.6 mmol/L (3.5-5.1)
[2019-11-04] MEDS ORDERED: PIPER/TAZO/NS 3.375gm 3.375 GM/100 ML BAG IVPB ONE ×2 (09:00→10:00)
--- NOTE | 2019-11-04 13:11 | PN ---
Date of Progress Note: 11/04/2019 Subjective: Patient is awake, alert. No complaint. Objective: Vital Signs: Stable. Afebrile. T-max was 100.0 last night. Abdomen: Benign. Laboratory Data: White count is down to 11,000. Assessment: Status post laparoscopic appendectomy for suppurative appendicitis with possible perfora tion. Recommendations: Continue IV antibiotics. Encourage ambulation and incentive spirometry. Advance d iet. Patient is clinically doing well, likely home in 24 to 48 hours. /MODL Voice ID: [id number] Report ID: [id number]
[2019-11-04] MEDS: HYDROCODONE/APAP 7.5/325 MG TAB PO PRN ×3 (14:43→22:18)
[2019-11-04] MEDS ORDERED: ENOXAPARIN 40 MG/0.4 ML SQ SCH (17:00)
[2019-11-04] MEDS: PIPER/TAZO/NS 3.375gm 3.375 GM/100 ML BAG IVPB SCH ×2 (18:09→23:26)
[2019-11-04] MEDS ORDERED: MAGNESIUM SULFATE 1 gm IVPB 1 GM/100 ML BAG IV ONE (18:31)
[2019-11-04] MEDS: POTASS/SODIUM PHOSPHATE 1 PKT POWD.PACK PO SCH ×3 (18:57→20:21)
--- NOTE | 2019-11-04 19:56 | HP ---
Date of Admission: 11/04/2019 Chief Complaint: Abdominal pain. History Of Present Illness: This is a 64-year-old pleasant male patient, came into emergency room with complaints of abdominal pain. The patient started to have right-sided lower abdominal pain evening and Tuesday his pain went away and he did his normal day-to-day activity and Tuesday evening he started to have recurrence of pain which was lot more intense, associated with some chills. No nausea, vomiting, constipation, or diarrhea. Pain got worse over period of time. So yesterday, he came into emergency room. Further evaluation in the emergency room revealed acute suppurative appendicitis and the patient was taken to surgery by Dr. Welch on an urgent basis and had laparoscopic appendectomy done for this acute appendicitis. Postoperatively, the patient was admitted to the hospital. I saw him this morning. He is feeling better overall compared to yesterday. Allergies: NO KNOWN ALLERGIES. Medications: List reviewed. Review of Systems: GI: As mentioned above. Constitutional: As mentioned above. All other systems reviewed and negative. Past Medical History: Allergic rhinitis, hypothyroidism, hypertension, ulcerative colitis, diverticulosis, prostate cancer. Past Surgical History: Tonsillectomy, hernia repair and prostatectomy done August 02, 2016, and cervical spine surgery. Family History: Father had prostate cancer and Parkinson disease. Mother had SD. One brother with cirrhosis of liver. Social History: Negative for smoking. Use of alcohol occasional beer. Physical Examination: Vital Signs: Temperature 98.5, pulse 101, respiratory rate 18, blood pressure 154/79, oxygen saturation 94%. Height 6 feet, weight 160 pounds. General: Awake, alert, oriented, not in distress. HEENT: Head atraumatic, normocephalic. Conjunctivae nonerythematous. Sclerae white. Mouth, no thrush or edema noted. Ears/Nose, no mass, lesion, discharge noted. Neck: Supple. No JVD, lymph nodes, bruit, thyromegaly noted. Lungs: Bilateral good equal air entry. Clear to auscultation. No rhonchi. No rales. Heart: Normal heart sounds, no murmur or gallop. Abdomen: Has a dressing present over the surgical incision site from laparoscopic surgery from yesterday. Abdomen appears slightly distended. Bowel sounds hypoactive. No guarding rigidity. Some mild tenderness present. No rebound tenderness. Extremities: No leg edema. No calf tenderness. Skin: No rash, ulcer, cellulitis. Lymphatics: No lymph node enlargement in neck, supraclavicular, infraclavicular region. Neuro: No focal neurological deficit. Chest: Unremarkable. External Genitalia: Deferred. Rectal: Deferred. Laboratory Data: Yesterday, white count 14.5, hemoglobin 14.5, platelets 181. This morning, white count 11.2, hemoglobin 12.7, platelets 155. Yesterday, sodium 141, potassium 4.5, chloride 108, bicarb 26, BUN 17, creatinine 1.18, glucose 142, total bilirubin 1.4, direct bilirubin 0.3, SGOT-SGPT normal, lipase 86. This morning, sodium 139, potassium 4.6, chloride 110, bicarb 26, BUN 12, creatinine 0.99, glucose 136, phosphorus 2, magnesium 1.6. Urinalysis negative. CAT scan of abdomen done in emergency room shows acute suppurative appendicitis. Impression: 1. Acute appendicitis. 2. Hypomagnesemia. 3. Hypophosphatemia. 4. Hypertension. 5. Ulcerative colitis. 6. Diverticulosis. 7. Prostate cancer. 8. Allergic rhinitis. Plan: Admit patient to hospital for further evaluation and management of this problem. Patient is appropriate for inpatient and is expected to spend 2 midnights in hospital. SCDs in place. We will continue that for DVT prophylaxis. We will also start the patient on Lovenox for DVT prophylaxis 40 mg subcutaneous injection daily as of this evening if okay with Dr. Welch. Adler catheter should be removed this morning. We will continue IV antibiotic which is Zosyn 3.375 g every 6 hours and we will continue home medication per order at appropriate time. Ambulation was encouraged. Plan of treatment discussed with the patient and his who was at bedside. WATSON/MODL Voice ID: [id number] LAVERNE
[2019-11-05 04:25] LABS: Absolute Lymphocytes (CBC) 0.6 K/uL (0.7-4.9); Basophils % 0.4 % (0-1.3); Hematocrit 32.3 % (39.6-49.0); Lymphocytes % 8.2 % (15.3-44.8); MPV 10.1 fL (7.6-11.3); RBC Red Blood Cell Count 3.26 M/uL (4.33-5.43)
[2019-11-05 04:37] LABS: Magnesium 2.2 mg/dL (1.8-2.4); Phosphorus 1.5 mg/dL (2.5-4.9); Potassium 4.4 mmol/L (3.5-5.1)
[2019-11-05] MEDS: HYDROCODONE/APAP 7.5/325 MG TAB PO PRN (05:26)
[2019-11-05] MEDS: PIPER/TAZO/NS 3.375gm 3.375 GM/100 ML BAG IVPB SCH (05:26)
[2019-11-05] MEDS: D5 0.45 NS 1,000 ML IV SCH (05:30)
[2019-11-05] MEDS: POTASS/SODIUM PHOSPHATE 1 PKT POWD.PACK PO SCH ×3 (07:00→09:28)
[2019-11-05 09:16] VITALS: O2SAT 96
[2019-11-05 10:38] VITALS: BP 131/76; TEMP 97.9
[2019-11-05] MEDS ORDERED: PIPER/TAZO/NS 3.375gm 3.375 GM/100 ML BAG IVPB SCH (11:30)
--- NOTE | 2019-11-05 12:09 | PN ---
Date of Progress Note: 11/05/2019 Subjective: Patient is awake, alert. No complaint. Objective: Vital Signs: Stable. Afebrile. White count is normal. Abdomen: Benign. Assessment: Status post laparoscopic appendectomy. Recommendations: Patient cleared from surgery standpoint. Discharge home. Patient will go home on Augmentin, Tylenol No. 3 for pain. Follow up in my office in a week. Discharge instructions given. /MODL Voice ID: [id number] Report ID: [id number]
--- NOTE | 2019-11-06 04:45 | DS ---
Date of Discharge: 11/05/2019 Disposition: Discharged to go home. Physical Examination: HEENT: Unremarkable. Lungs: Clear to auscultation. Heart: Heart sounds normal. Abdomen: Soft, bowel sounds normal. No guarding, rigidity, distention. Minimum tenderness around s urgical site. Extremities: No leg edema. Laboratory Data: Upon admission white count 14.5, hemoglobin 14.5, platelets 181. Today, white coun t 7.7, hemoglobin 11.5, platelets 140. Chemistry: Sodium 140, potassium 4.4, chloride 110, bicarb 2 6, BUN 9, creatinine 1.04, glucose 122, phosphorus 1.5, magnesium 2.2. Yesterday, magnesium was 1.6 and phosphorus 2. Final Diagnoses: 1.Acute appendicitis. 2.Hypomagnesemia. 3.Hypophosphatemia. 4.Anemia. 5.Thrombocytopenia. 6.Hypertension. 7.Ulcerative colitis. 8.Diverticulosis. 9.Prostate cancer. 10.Allergic rhinitis. Hospital Course: A 64-year-old pleasant male patient admitted to the hospital with acute appendiciti s. Please see dictated H and P for more information. Patient came into emergency room with complain ts of abdominal pain. Further evaluation in the emergency room revealed acute suppurative appendicit is. Patient was admitted to the hospital, had emergency surgery done by Dr. Welch in form of laparos copic appendectomy. He was started on IV antibiotic, IV Zosyn, and diet was started. Clear liquid d iet and Dr. Welch advanced diet as he tolerated. Patient started to ambulate very well. DVT prophyl axis with SCD and Lovenox was given. This morning, he is feeling much better and Dr. Welch has relea sed him to go home from a surgical point of view. Medically, he is stable for discharge. His Adler catheter was discontinued yesterday after that he has started to urinate without any problems. Discharge Medications And Instructions: 1.Continue all prior home medications. 2.Augmentin 875 mg twice a day for 10 days. 3.Tylenol with Codeine No.3 one tablet every 6 hours as needed for pain prescription given for 20 ta blets. No refill. 4.Follow up at my office this week on . 5.Follow up at Dr. Welch office next week. WATSON/MODL Voice ID: [id number] Report ID: [id number]
== END 2019-11-05 11:22 | disposition home or self-care (01) | DRG 342 ==
LOC: ER 15:05 → ERHOLD 18:56 → 4TH 21:01
PROVIDERS: ADMIT Internal Medicine; ATTEND Internal Medicine
PROC: 0DTJ4ZZ Resection of Appendix, Percutaneous Endoscopic Approach (ICD-10-PCS; principal; 2019-11-03 20:00)
DX: K35.80 Unspecified acute appendicitis (principal); K51.90 Ulcerative colitis, unspecified, without complications; E83.42 Hypomagnesemia; E83.39 Other disorders of phosphorus metabolism; D64.9 Anemia, unspecified; D69.6 Thrombocytopenia, unspecified; I10 Essential (primary) hypertension; K57.90 Diverticulosis of intestine, part unspecified, without perforation or abscess without bleeding; Z85.46 Personal history of malignant neoplasm of prostate; J30.9 Allergic rhinitis, unspecified
CPT/HCPCS: 36415; 74177; 80048; 80076; 81003; 81015; 83690; 83735; 84100; 85025; 87086; 87088; 88304; 96361; 96365; 96375; 99285; J0330; J1170; J2250; J2405; J2543; J2704; J2710; J3010; J3475; J7030; J7120; J7799; Q9967

== ENCOUNTER 2019-12-05 | Emergency (ER) | payer OTHER | END 2019-12-05 20:08 | disposition home or self-care (01) | CPT/HCPCS: 85025; 80048; 36415; 80076; 83690; 74177; 99284; Q9967 ==

== ENCOUNTER 2020-05-21 08:04 | Day surgery (SDC) | payer OTHER ==
--- NOTE | 2020-05-06 10:12 | RAD REPORT ---
EXAM DESCRIPTION: RAD - Chest Pa And Lat (2 Views) - 05/06/2020 9:49 am CLINICAL HISTORY: PRE OP FOR SURGERY Chest pain. COMPARISON: No comparisons FINDINGS: The lungs are clear. The heart is normal in size. No displaced fractures. Cervical hardwar e plate. IMPRESSION: No acute or concerning finding suspected.
[2020-05-06 10:20] LABS: Absolute Lymphocytes (CBC) 1.1 K/uL (0.7-4.9); Basophils % 0.9 % (0-1.3); Hematocrit 42.1 % (39.6-49.0); Lymphocytes % 18.9 % (15.3-44.8); MPV 9.6 fL (7.6-11.3); RBC Red Blood Cell Count 4.25 M/uL (4.33-5.43)
[2020-05-06 10:47] LABS: Potassium 4.9 mmol/L (3.5-5.1)
--- NOTE | 2020-05-06 20:00 | EKG ---
Test Date: 2020-05-06 Test Time: 09:53:21 Engine Pilot: Marlin Cummins MEASUREMENT RESULTS: Intervals: Rate: 64 FL: 154 QRSD: 82 QT: 414 QTc: 427 Tracy: P: 70 FL: 154 QRS: 64 T: 60 INTERPRETIVE STATEMENTS: Normal sinus rhythm Normal ECG Compared to ECG 04/03/2002 08:00:00 No significant changes Electronically Signed On 05-06-20 19:59:17 CDT by Kana Montez
--- OUTSIDE RECORDS SUMMARY | 2020-05-21 08:24 | XMS REPORT | Continuity of Care Document ---
:1955 Author Organization [facility] t Address [address] [place] [address] Care Team Providers Name Role Phone Placido Singh MD Primary Care Physician Zee CONKLIN Attending Clinician KELLEE BUENROSTRO Attending Clinician Unavailable JOAO IBARRA Attending Clinician Unavailable KELLEE BUENROSTRO Admitting Clinician Unavailable Problems Condition Condition Condition Status Onset Resolution Last Treating Co mments Source Name Details Category Date Date Treatment Clinician Date Ulcerative Ulcerative Disease Active [facility] pancolitis pancolitis 1 Cristina kes - 00:00: Medical 00 [place] Prostate Prostate Disease Active 2015-[facility] 00 [place] Allergies, Adverse Reactions, Alerts This patient has no known allergies or adverse reactions. Social History Social Habit Start Date Stop Date Quantity Comments Source Sex Assigned At [facility] Smoking Status Start Date Stop Date Source Never smoker [facility] Medications Ordered Filled Start Stop Current Ordering Indication Dosage Frequency Signature Comments Components Source Medication Medication Date Date Medication? Clinician (SIG) Name Name zinc 2018- Yes 50mg [id number] Take [address] gluconate 1-07 [id number] by mouth 3 [facility] - 50 mg 14:55: 3W (three) Medical tablet 08 times a Center week . TURMERIC Yes Take by [facility] ORAL 1-07 mouth. [facility] - 14:55: Medical 08 [place] hyoscyamine Yes .375mg Take 0.[address] [facility] (LEVBID) 1-07 mg by [facility] - 0.375 mg 12 14:55: mouth Medic al hr tablet 07 every 12 Center (twelve) hours as needed for Cramping. tadalafil 2019-0 Yes 5mg QD Take [address] [facility] (CIALIS) 5 1-07 by mouth [facility] - MG tablet 14:55: daily. Medica l 07 Center Missing or 2015-08 Yes 1{tbl} QD [address] Non-Formula 2-05 daily [facility] Cici es - ry 06:24: Ultra 25B Medical Medication [address] krill oil 2015-08 Yes 1{tbl} QD Take [address] [facility] 500 mg Cap 2-05 tablet by [facility] - 06:24: mouth Medical 07 daily Will Center stop 07/26/2016 . multivitami 2015-08 Yes 2{tbl} QD Take [address] n per 1-23 tablets by [facility] - tablet 10:44: mouth Medical 40 daily . [place] acetaminoph 2015-08 Yes 650mg Take [address] en 1-23 mg by [facility] - (TYLENOL) 10:44: mouth 2 Medic al 325 MG 40 (two) Center tablet times daily as needed for Pain . aspirin 81 2015-08 Yes 81mg QD Take [address] MG EC - by mouth [facility] - tablet 10:44: daily Will Medic al 40 stop on Center 07/26/16. calcium 2015-08 Yes 1{tbl} QD Take [address] [facility] [address] carbonate-v 1-23 tablet by Cici es - itamin D3 10:44: mouth Medical (OSCAL-D) 40 daily . [place] 500 mg(1,250mg) -200 unit per tablet glucosamine 2015-08 Yes 3{tbl} QD Take [address] -chondroiti 1-23 tablets by Cristina kes - n 500-400 10:44: mouth Medical mg tablet 40 daily . [place] melatonin 3 2015-08 Yes 5mg QD Take [address] mg Tab 1- by mouth [facility] - 10:44: nightly . Medical 40 Center azaTHIOprin 2015-08 Yes 75mg QD Take [address] [facility] e (IMURAN) 1-23 by mouth [facility] - 50 mg 10:44: daily . Medical tablet 40 [place] fluticasone 2015-08 Yes 1{spray [address] [facility] (FLONASE) 1-23 } Nasal [facility] - 50 10:44: route as Medical mcg/actuati 40 needed for Ce nter on nasal Rhinitis. spray diphenhydrA 2015- Yes 25mg Take [address] [facility] MINE 6-28 by mouth [facility] - (BENADRYL) 08:59: every Medica l 25 mg 11 night as Center tablet needed for Sleep. fexofenadin 2014- Yes 30mg QD Take [address] [facility] e (TAZ) 9-15 by mouth [facility] - 30 MG 09:14: daily . Medical tablet 28 Center amLODIPine 2014-0 Yes 2.5mg QD Take 2.[address] (NORVASC) 7-01 mg by [facility] - 2.5 MG 10:20: mouth Medical tablet 17 daily. Center Procedures This patient has no known procedures. Encounters Start End Encounter Admission Attending Care Care Encounter Source Date/Time Date/Time Type Type Clinicians Facility Department ID 2019-10-22 2019-10-22 Office GLENDY Koch [id number] 08:48:59 09:48:59 Visit Alessia AMBULATOR [id number] Results Test Description Test Time Test Comments Results Result Sourc e Comments RAD, BONE DENSITY 2018-12-05 Reason for FINAL REPORT PATIENT STUDY 14:58:00 Exam:->ulcerative ID: [id number] Bone pancolitis with mineral density other study 12/05/2018. complication; HISTORY PROVIDED: osteopenia, Ulcerative unspecified pancolitis with location other complication; osteopenia, unspecified location. COMPARISON: None available [...] the lumbar spine. Diagnostic criteria (World Health Organization)-Normal : BMD measurement less than one standard deviation from young adult populationOsteopenia : BMD measurement between 1 and 2.4 standard deviations belowOsteoporosis: BMD measurement greater than or equal to 2.5 standard deviations belowSevere osteoporosis: Osteoporosis and one or more fragility fractures Signed: Royce Dasilva MDReport Verified Date/Time: 12/05/2018 14:58:39 Reading Location: [facility] UE EXAM 2018-09-07 Surgical Pathology 12:15:00 Report Case: [id number] Authorizing Provider: Oleg Buenrostro MD Collected: 09/05/2018 1334 Ordering Location: [facility] ENDOSCOPY Received: 09/06/2018 0807 SERVICES Pathologist: [...] INACTIVE PROCTITIS Signing Pathologist Direct Phone Line: [phone] ically signed by Neris Noonan MD on 09/07/2018 at 12:15 [facility]/ew [id number] pancolitis without complication, history ulcerative colitis, evaluate [...] 2016-10-21 12:36:00 Test Item Value Reference Range Interpretation Comme nts CULTURE (BEAKER) (test code = 1095) No growth URINALYSIS W/ [id number] 15:29:00 Test Item Value Reference Range Interpretation Comments COLOR (BEAKER) (test code = 470) Dark Yellow CLARITY (BEAKER) (test code = Clear 469) SPECIFIC GRAVITY UA (BEAKER) 1.023 1.001-1.035 (test code = 468) PH UA (BEAKER) (test code = 467) 5.5 5.0-8.0 PROTEIN UA (BEAKER) (test code = Negative Negative 464) GLUCOSE UA (BEAKER) (test code = Negative Negative 365) KETONES UA (BEAKER) (test code = Negative Negative 371) BILIRUBIN UA (BEAKER) (test code Negative Negative = 462) BLOOD UA (BEAKER) (test code = Negative Negative 461) NITRITE UA (BEAKER) (test code = Negative Negative 465) LEUKOCYTE ESTERASE UA (BEAKER) Negative Negative (test code = 466) UROBILINOGEN UA (BEAKER) (test 0.2 mg/dL 0.2-1.0 code = 463) RBC UA (BEAKER) (test code = 519) < /HPF WBC UA (BEAKER) (test code = 520) < /HPF MUCUS (BEAKER) (test code = 1574) Rare SOURCE(BEAKER) (test code = 2795)
--- OUTSIDE RECORDS SUMMARY | 2020-05-21 08:24 | XMS REPORT | Clinical Summary ---
:1955 Author Organization [facility] Address [address] [place] [address] Care Team Providers Name Role Phone Placido Singh MD Primary Care Provider Allergies No Known Allergies Medications Medication Sig Dispensed Refills Start Date End Date Status amLODIPine (NORVASC) 2.5 Take 2.5 mg by 0 Active MG tablet mouth daily. multivitamin per tablet Take 2 tablets 0 Active by mouth daily . fexofenadine (TAZ) Take 30 mg by 0 Active 30 MG tablet mouth daily . acetaminophen (TYLENOL) Take 650 mg by 0 Active 325 MG tablet mouth 2 (two) times daily as needed for Pain . aspirin 81 MG EC tablet Take 81 mg by 0 Active mouth daily Will stop on 07/26/16. calcium Take 1 tablet by 0 Act jose carbonate-vitamin D3 mouth daily . (OSCAL-D) 500 mg(1,250mg) -200 unit per tablet glucosamine-chondroitin Take 3 tablets 0 Active 500-400 mg tablet by mouth daily . zinc gluconate 50 mg Take 50 mg by 0 Active tablet mouth 3 (three) times a week . diphenhydrAMINE Take 25 mg by 0 Active (BENADRYL) 25 mg tablet mouth every night as needed for Sleep. melatonin 3 mg Tab Take 5 mg by 0 Active mouth nightly . azaTHIOprine (IMURAN) 50 Take 75 mg by 0 Active mg tablet mouth daily . Missing or Non-Formulary 1 tablet daily 0 Active Medication [facility] Ultra 25B Probiotic. fluticasone (FLONASE) 50 1 spray by Nasal 0 Active mcg/actuation nasal route as needed spray for Rhinitis. krill oil 500 mg Cap Take 1 tablet by 0 Active mouth daily Will stop 07/26/2016. hyoscyamine (LEVBID) Take 0.375 mg by 0 Active 0.375 mg 12 hr tablet mouth every 12 (twelve) hours as needed for Cramping. tadalafil (CIALIS) 5 MG Take 5 mg by 0 Active tablet mouth daily. TURMERIC ORAL Take by mouth. 0 A ctive Active Problems Problem Noted Date Ulcerative pancolitis 09/05/2018 Prostate cancer 08/02/2016 Social History Tobacco Use Types Packs/Day Years Used Date Never Smoker Smokeless Tobacco: Never Used Alcohol Use Drinks/Week oz/Week Comments Yes 2-3 Cans of beer 1.2 - 1.8 Sex Assigned at Date Recorded Not on file Job Start Date Occupation Industry Not on file Not on file Not on file Travel History Travel Start Travel End No recent travel history available. Last Filed Vital Signs Not on file Plan of Treatment Not on file Results Not on fileafter 05/21/2019 Insurance Payer Benefit Plan / Subscriber ID Type Phone Address Group [employer] - MEDICARE AETNA MEDICARE xxxxxxxx [phone] [address] [employer] [place] [address] [employer] - [employer] A[employer] HMO POS xxxxxxxxxx HMO/POS QPOS Advance Directives For more information, please contact:[address] [phone] Code Status Date Activated Date Inactivated Comments Full Code 08/02/2016 3:06 PM 08/04/2016 7:57 PM This code status was determined by: Patient
[2020-05-21] MEDS ORDERED: CEFAZOLIN/SWI 1gm 1 GM/10 ML SYR ONE (08:43)
[2020-05-21] MEDS ORDERED: Ringers Lactate 1,000 ML IV ONE ×2 (08:43→12:39)
[2020-05-21] MEDS ORDERED: MIDAZOLAM HCL 2 MG/2 ML INJ ONE (10:29)
[2020-05-21] MEDS ORDERED: propofoL 200 MG/20 ML VIAL IV ONE (10:29)
[2020-05-21] MEDS ORDERED: FENTANYL CITR 100 MCG/2 ML ONE (10:29)
[2020-05-21] MEDS ORDERED: LIDOCAINE 1% MPF 5 ML VIAL ONE (10:29)
[2020-05-21] MEDS ORDERED: ONDANSETRON 4 MG/2 ML VIAL ONE (11:02)
[2020-05-21] MEDS ORDERED: dexAMETHasone 10 MG/ML VIAL ONE (11:02)
[2020-05-21] MEDS ORDERED: KETOROLAC 30 MG/ML INJ ONE (11:09)
[2020-05-21 11:45] VITALS: O2SAT 100
[2020-05-21 12:07] VITALS: TEMP 97.3
[2020-05-21] MEDS ORDERED: HYDROCODONE/APAP 7.5/325 MG TAB ONE (12:39)
--- NOTE | 2020-05-21 13:13 | OP ---
Date of Procedure: 05/21/2020 Surgeon: George Welch MD Radiation / Chemistry Technician: ORALIA Salas Preoperative Diagnosis: Left inguinal hernia. Postoperative Diagnosis: Left inguinal hernia. Procedure: Repair of left inguinal hernia. Estimated Blood Loss: Minimal. Specimen: Hernia sac. Findings: Direct and indirect hernia. Anesthesia: General. Complications: None. Disposition: The patient tolerated procedure in stable condition, taken to Recovery in good general condition. Procedure In Detail: The patient was brought to the OR and placed in supine position. General anest hesia was began. The patient was prepped and draped in the usual sterile fashion. Marcaine 0.5% was infiltrated locally. A 15-blade was used to make a 4 cm oblique incision in the left groin between the pubic tubercle and the anterior iliac superior spine. Subcutaneous tissue divided. Bign's fas tk identified and divided. Aponeurosis was very attenuated, it was opened through the external ring . The ilioinguinal nerve and cord structures were identified and mobilized at the pubic tubercle. T he patient had an indirect sac as well as a direct hernia. The indirect sac was freed from the surro unding structures with sharp and blunt dissection. Bleeding controlled with cautery. Then, a high l igation of the hernia sac that was done with 2-0 Prolene, suture ligature and free hand tie. The her destiney sac was excised, sent to Pathology as specimen. The direct hernia was imbricated with joining th e conjoined tendon to the shelving edge. Created a new inguinal floor and internal ring. Then, Marl ex mesh plug placed in the internal ring, secured with VersaTack stapler. [place] mesh was placed on t he inguinal floor, secured medially to the pubic tubercle, superior to the conjoined tendon, laterall y to each other, inferior to the shelving edge. Then, cord structures and ilioinguinal nerve were pl aced back in anatomic location. 3-0 chromic used to close the Bing fascia and kathe were used to close the skin. Sterile dressing was applied. The patient was awakened and taken to Recovery in go od general condition. Discharge Note: The patient will go to Day Surgery and home when stable. Disposition: Home. Condition: Stable. Discharge Instructions: Resume home medications and diet. Activity as tolerated. No heavy lifting. Remove outer dressing in 2 days. Shower. Keep wound clean and dry. Scrotal support, ice pack. T ylenol No. 3 one tablet p.o. q.4 p.r.n. pain. Follow up in my office in 1 week. Call for brenden QUEVEDO Voice ID: [id number] Report ID: [id number]
[2020-05-21 13:31] VITALS: BP 146/52
== END 2020-05-21 13:10 | disposition home or self-care (01) ==
LOC: OR 08:04
PROVIDERS: ATTEND Surgery
PROC: 0YU60JZ Supplement Left Inguinal Region with Synthetic Substitute, Open Approach (ICD-10-PCS; principal; 2020-05-21 09:15)
DX: K40.90 Unilateral inguinal hernia, without obstruction or gangrene, not specified as recurrent (principal); Z20.828 Contact with and (suspected) exposure to other viral communicable diseases
CPT/HCPCS: 93005; 85025; 80048; 36415; 88302; 71046; 49505; U0002 ×2; J2704; J2250; J3010; J1100; J0690; J7120 ×2; J2405